=== PATIENT | male | born 1995 | race Caucasian/White ===

== ENCOUNTER 2018-09-21 01:39 | Observation (INO) | payer SELFPAY ==
[2018-09-21] MEDS ORDERED: NORMAL SALINE 1000 ML 1,000 ML IV ONE (02:01)
--- NOTE | 2018-09-21 02:26 | RADIOLOGY REPORT (SQ) ---
EXAM DESCRIPTION: XR CHEST 2 VIEWS COMPLETED DATE/TME: 09/21/2018 01:58 CLINICAL HISTORY: 22 years, Male, chest and back pain, esophageal obstruction. Comparison: None FINDINGS: No focal lung consolidation. No pleural effusion. No pneumothorax. Cardiac and mediastinal silhouette is unremarkable. No acute osseous abnormality. Soft tissues are unremarkable. IMPRESSION: No acute findings. No focal lung consolidation.
--- NOTE | 2018-09-21 02:41 | ER Document Report ---
ED General - General Chief Complaint: Other Stated Complaint: POSSIBLE ESOPHAGEAL OBSTRUCTION,CHEST PAIN Time Seen by Provider: 09/21/18 01:56 Notes: Patient is a 22-year-old male who presents with complaint of possible esophageal impaction. Patient says around 6 PM he felt a piece of chicken get stuck in esophagus. He is unable to tolerate liquids since then. Tonight he coughed and started having pain into his chest and back and still was unable to hold down any liquids or even swallow his own secretions and therefore he came to the ER. Denies any fevers. Denies this ever happening in the past. No history of acid reflux. No recent fevers or infections. No other complaints at this time. No difficulty breathing. - Related Data Allergies/Adverse Reactions: No Known Allergies Allergy (Unverified 09/21/18 01:48) Past Medical History - Social History Smoking Status: Never Smoker Frequency of alcohol use: None Drug Abuse: None Family History: Reviewed & Not Pertinent Patient has suicidal ideation: No Patient has homicidal ideation: No Renal/ Medical History: Denies: Hx Peritoneal Dialysis Past Surgical History: Reports: Hx Cholecystectomy Review of Systems - Review of Systems Notes: My Normal Review Basic REVIEW OF SYSTEMS: CONSTITUTIONAL : Denies fever, chills, or sweats. Denies recent illness. EENT: Denies eye, ear, throat, or mouth pain or symptoms. Denies nasal or sinus congestion. CARDIOVASCULAR: Some chest pain. RESPIRATORY: Denies cough, cold, or chest congestion. Denies shortness of breath, difficulty breathing, or wheezing. GASTROINTESTINAL: Denies abdominal pain. Blood to hold down liquids or secretions. ALL OTHER SYSTEMS REVIEWED AND NEGATIVE. Physical Exam - Vital signs Vitals: Temp Pulse Resp BP Pulse Ox 98.4 F 61 16 117/72 96 09/21/18 01:43 09/21/18 01:43 09/21/18 01:43 09/21/18 01:43 09/21/18 01:43 - Notes Notes: General Appearance: Well nourished, alert, cooperative, no acute distress, no obvious discomfort. Patient doing emesis bag and spitting saliva into the bag. Vitals: reviewed, See vital signs table. Head: no swelling or tenderness to the head Eyes: PERRL, EOMI, Conjuctiva clear Mouth: No decreasd moisture Throat: No tonsillar inflammation, No airway obstruction, No lymphadenopathy Neck: Supple, no neck tenderness, No crepitance Chest wall: No crepitance to palpation of her chest wall. Lungs: No wheezing, No rales, No rhonci, No accessory muscle use, good air exchange bilaterally. Heart: Normal rate, Regular rythm, No murmur, no rub Abdomen: soft, No rigidity, No abdominal tenderness, No guarding, no rebound, no abdominal masses, no organomegaly Neuro: speech clear, oriented x 3, normal affect, responds appropriately to questions. Course - Re-evaluation Re-evalutation: 09/21/18 02:40 Patient has signs and symptoms consistent with esophageal impaction. I did obtain chest x-ray she was having some chest pain. Did this to make sure there is no evidence of pneumomediastinum or esophageal perforation. This is negative. Patient's vital signs are stable. I did speak with Dr. Akers, covering surgeon, who said he will come down and evaluate the patient for potential endoscopy. 09/21/18 02:47 Dr. Bravo has come down. He requests that I give the patient glucagon first to see if this helps. He says to give him glucagon and to have him drink cold water. If this is ineffective then he will consider endoscopy. 09/22/18 03:29 Dr. Bravo did take the patient to endoscopy to remove the food impaction bolus. Patient was then discharged. Dictation of this chart was performed using voice recognition software; therefore, there may be some unintended grammatical errors. - Vital Signs Vital signs: Temp Pulse Resp BP Pulse Ox 98.1 F 87 16 122/65 98 09/21/18 11:41 09/21/18 11:41 09/21/18 11:41 09/21/18 07:29 09/21/18 11:41 Discharge - Discharge Clinical Impression: Food impaction of esophagus Qualifiers: Encounter type: initial encounter Qualified Code(s): T18.128A - Food in esophagus causing other injury, initial encounter Condition: Stable Disposition: OTHER Unit Admitted: OR
[2018-09-21] MEDS ORDERED: GLUCAGON,HUMAN RECOMB 1 MG INJ IV ONE (02:44)
--- NOTE | 2018-09-21 03:51 | PDOC H&P ---
History of Present Illness Patient complains of: dysphagia History of Present Illness: JORGE COOK is a 22 year old male, healthy who chewed and swallowed a small piece of chicken from the pizza topping at a pizza parlor when he chocked on it. This happened at abot 6:00 pm last evening and since then he has been unable to tolerate his own secretions. Past Surgical History Past Surgical History: Reports: Cholecystectomy Social History Smoking Status: Never Smoker Family History Family History: Reviewed & Not Pertinent Parental Family History Reviewed: No Children Family History Reviewed: No Sibling(s) Family History Reviewed.: No Medication/Allergy Allergies/Adverse Reactions: No Known Allergies Allergy (Unverified 09/21/18 01:48) Physical Exam Vital Signs: Temp Pulse Resp BP Pulse Ox 98.4 F 70 11 L 121/83 100 09/21/18 01:43 09/21/18 01:45 09/21/18 03:01 09/21/18 03:00 09/21/18 03:01 Intake & Output 09/19/18 09/20/18 09/21/18 06:59 06:59 06:59 Intake Total 1000 Balance 1000 Weight 51.6 kg General appearance: PRESENT: mild distress, other - spitting up his own saliva Eye exam: PRESENT: EOMI Mouth exam: PRESENT: moist, neck supple Teeth exam: PRESENT: poor dentation Neck exam: PRESENT: full ROM, other - no crepitus Respiratory exam: PRESENT: clear to auscultation brett Cardiovascular exam: PRESENT: RRR GI/Abdominal exam: PRESENT: soft Results Impressions: Chest X-Ray 09/21/18 01:58 IMPRESSION: No acute findings. No focal lung consolidation. Assessment & Plan - Diagnosis (1) Dysphagia Is this a current diagnosis for this admission?: Yes (2) Food impaction of esophagus Is this a current diagnosis for this admission?: Yes - Plan Summary Plan Summary: A/ Impacted food bolus in esophagus since last night 6:00 pm Patient unable to handle his own secretions Chest X-ray negative P/ Emergent EGD to disimpact the esophagus from the food bolus. procedure, risks, benefits, complications explained to the patient, his questions were answered and he decided to proceed
[2018-09-21] MEDS ORDERED: FENTANYL CITRATE INJ/PF 100 MCG/2 ML AMPUL ONE (04:02)
[2018-09-21] MEDS ORDERED: MIDAZOLAM 2 MG/2 ML INJ ONE (04:02)
[2018-09-21] MEDS ORDERED: PROPOFOL INJ 200 MG/20 ML VIAL IV ONE (04:03)
[2018-09-21] MEDS ORDERED: EPHEDRINE SULFATE INJ 50 MG/1 ML AMPULE ONE (04:03)
[2018-09-21] MEDS ORDERED: DEXMEDETOMIDINE INJ 80 MCG/20 ML VIAL IV ONE (04:03)
[2018-09-21] MEDS ORDERED: PROMETHAZINE HCL INJ 25 MG/1 ML VIAL IV PRN (04:51)
[2018-09-21] MEDS ORDERED: MEPERIDINE HCL/PF INJ 25 MG/1 ML DISP.SYRIN IV PRN (04:51)
[2018-09-21] MEDS ORDERED: ONDANSETRON HCL INJ/PF 4 MG/2 ML SDV IV PRN ×2 (04:51→05:20)
[2018-09-21] MEDS ORDERED: DIPHENHYDRAMINE HCL 50 MG/ML VIAL IV PRN (04:51)
--- NOTE | 2018-09-21 05:17 | Operative Report ---
Nonrecallable Operative Report DATE OF SURGERY: 09/21/18 PREOPERATIVE DIAGNOSIS: impacted esophageal food bolus POSTOPERATIVE DIAGNOSIS: same at 30 cm from incisors OPERATION: EGD with esophageal food disimpaction SURGEON: TIAGO CAST ANESTHESIA: GA TISSUE REMOVED OR ALTERED: food bolus (chicken) located in the esophagus at 30 cm from incisors COMPLICATIONS: n/a ESTIMATED BLOOD LOSS: n/a INTRAOPERATIVE FINDINGS: large piece of unmasticated chicken uimpacted in the esophguse at 30 cm from the incisors PROCEDURE: see dictation
[2018-09-21] MEDS ORDERED: NORMAL SALINE 1000 ML 1,000 ML IV PRN (05:20)
--- NOTE | 2018-09-21 05:34 | RADIOLOGY REPORT (SQ) ---
EXAM DESCRIPTION: XR CHEST 1 VIEW COMPLETED DATE/TME: 09/21/2018 00:00 CLINICAL HISTORY: 22 years, Male, Post-procedure r/t food bolus COMPARISON: Prior chest x-ray from today's date NUMBER OF VIEWS: 1 TECHNIQUE: Portable chest LIMITATIONS: None. FINDINGS: Heart size is normal. The lungs are clear. No pneumothorax IMPRESSION: Negative chest copyright 2010 [employer]- All Rights Reserved
[2018-09-21 08:01] VITALS: BP 122/65
[2018-09-21] MEDS ORDERED: FAMOTIDINE INJ/PF 20 MG/2 ML SDV IV SCH (10:00)
--- NOTE | 2018-09-21 11:41 | PDOC DISCHARGE SUMMARY ---
General - Admit/Disc Date/PCP Admission Date/Primary Care Provider: 09/21/18 05:30 Discharge Date: 09/21/18 - Additional Information Resuscitation Status: Full Code Discharge Diet: As Tolerated Discharge Activity: Activity As Tolerated History of Present Illness History of Present Illness: JORGE COOK is a 22 year old male admitted for ingested foreign body with obstruction. The patient underwent EGD with extraction of the foreign body. He was sent to the floor in stable condition. Hospital Course Hospital Course: Patient was taken to the floor in stable condition. He was ambulating, tolerating a diet, afebrile, and by 09/21/2018 it was felt that he had reached maximal hospital benefit and was fit for discharge. Physical Exam Vital Signs: Temp Pulse Resp BP Pulse Ox 98.1 F 87 16 122/65 98 09/21/18 10:48 09/21/18 10:48 09/21/18 10:48 09/21/18 07:29 09/21/18 10:48 Intake & Output 09/20/18 09/21/18 09/22/18 06:59 06:59 06:59 Intake Total 1725 Output Total 2 Balance 1723 Weight 51.6 kg Results Impressions: Chest X-Ray 09/21/18 01:58 IMPRESSION: No acute findings. No focal lung consolidation. Qualifiers - * PATIENT BEING DISCHARGED WITH ANY OF THE FOLLOWING DIAGNOSIS: No Acute Heart Failure Is this a Heart Failure Patient?: No Plan Discharge Plan: Discharge home. Diet as tolerated. Activity as tolerated. Follow-up with me as needed. Please renotify or return to the emergency department if the patient experiences fevers, chills, chest pain, shortness of breath, nausea, vomiting, hematemesis, or any other strange symptoms. Time Spent: Less than 30 Minutes
[2018-09-21] MEDS ORDERED: LIDOCAINE 2% INJ-PF (20 MG/ML) 2 ML AMPUL ONE (14:25)
[2018-09-21] MEDS ORDERED: ONDANSETRON HCL INJ/PF 4 MG/2 ML SDV ONE (14:25)
[2018-09-21] MEDS ORDERED: METOCLOPRAMIDE HCL INJ/PF 10 MG/2 ML SDV ONE (14:25)
[2018-09-21] MEDS ORDERED: SUCCINYLCHOLINE CHLORIDE INJ 200 MG/10 ML VIAL ONE (14:25)
[2018-09-21] MEDS ORDERED: DEXAMETHASONE SOD PHOSPHATE INJ 4 MG/1 ML VIAL ONE (14:25)
--- NOTE | 2018-09-22 07:55 | OPERATIVE REPORT E ---
Operative Report NAME: JORGE COOK : 1995 AGE: 22Y DATE OF SURGERY: 09/21/2018 ROOM: 205 PREOPERATIVE DIAGNOSIS: IMPACTED FOOD BOLUS IN ESOPHAGUS. POSTOPERATIVE DIAGNOSIS: IMPACTED FOOD BOLUS IN ESOPHAGUS AT 30 CM FROM THE INCISORS. OPERATION: 1. Upper gastroduodenoscopy. 2. Esophageal disimpaction of food bolus. SURGEON: TIAGO CAST M.D. HAT BLOCK BENCH HAND: None. BLEEDING COMPLICATION: None. ANESTHESIA: General. FLUIDS: 800 mL of crystalloid. INDICATION AND FINDINGS: A healthy 22-year-old male who inhaled a large piece of chicken while at dinner yesterday at about 6 p.m., and the patient presented to the emergency room at about 2:00 in the morning with difficulty in handling his own saliva. The patient was given glucagon IV and Ativan without success. Just prior to the patient receiving IV glucagon and Ativan, the patient was unable to swallow his own secretions. Therefore, a decision was made to take the patient to surgery to undergo endoscopic removal of the esophageal-impacted food bolus. The procedure, risks, benefits, and complications explained to the patient. He understands all the above. His questions were answered. He decided to proceed. DETAILS OF PROCEDURE: The procedure was done in the operating room. The patient was placed in the supine position. General anesthesia induced by endotracheal intubation. The patient was then rotated in the right lateral decubitus. The patient's mouth was then opened and an endoscope was inserted through the mouth into the esophagus. A large piece of food (chicken) was found impacted at about 30 cm from the incisors. At this point, through the endoscope a large overpass tube was inserted into the mouth and pharynx. An initial an attempt was made to push the food bolus down was unsuccessful. At this point, using the 4-finger prong grasper, the food bolus was initially broke up in pieces and eventually the entire food bolus was grasped and removed through the patient's mouth and extracted in toto. The endoscope was then reinserted through the patient's mouth into the esophagus and the stomach. The stomach was emptied from a large amount of fluid and bilious content. A small amount of food residue was noted in the stomach. The instrument was then retroflexed. The GE junction appeared to be normal. The instrument was then slowly removed and the distal esophagus appeared to be normal. A small area of erythema was noted in the midesophagus, about 2 cm long, where the food bolus was initially impacted. However, no true injury of the mucosa of the esophagus was noted. The instrument was slowly withdrawn. All the secretions were aspirated. The endoscope and the overpass tube were removed. The patient tolerated the procedure well, extubated, and transferred to the recovery room in satisfactory condition. A chest x-ray was obtained to rule out the presence of complications. DICTATING PHYSICIAN: TIAGO CAST M.D. [id number] PHY#: [id number] ID: [id number] JOB#: [id number] ACCT: [id number] cc:TIAGO CAST M.D. > MTDD
== END 2018-09-21 11:50 | disposition home or self-care (01) ==
LOC: ER 01:39 → EH 05:30 → 2N 05:53
PROVIDERS: ATTEND Surgery
PROC: 0DC28ZZ Extirpation of Matter from Middle Esophagus, Via Natural or Artificial Opening Endoscopic (ICD-10-PCS; principal; 2018-09-21 04:00)
DX: T18.128A Food in esophagus causing other injury, initial encounter (principal); X58.XXXA Exposure to other specified factors, initial encounter; R13.10 Dysphagia, unspecified; Z90.49 Acquired absence of other specified parts of digestive tract
CPT/HCPCS: 99283; 96361; 96374; 43247; 71046; 71045; G0378 ×2; J2250; J1100; J1610; J2765; J0330; J2405; J7030; J2704; S0028; J3490; 731; J3010

== ENCOUNTER 2018-12-11 07:43 | Emergency (ER) | payer SELFPAY ==
--- NOTE | 2018-12-11 08:11 | ER Document Report ---
ED General - General Chief Complaint: Vomiting Stated Complaint: VOMITING Time Seen by Provider: 12/11/18 08:10 Primary Care Provider: ERNESTO SANCHEZ MD [ACTIVE STAFF] - Follow up in 3-5 days MANUEL ALLEN MD [ACTIVE STAFF] - Follow up in 3-5 days Mode of Arrival: Medic Information source: Patient TRAVEL OUTSIDE OF THE [place] IN LAST 30 DAYS: No - HPI Notes: 23-year-old male presents the ED for evaluation of vomiting for the last day and was concerned due to having red blood in his vomit. Patient states that he has been vomiting after eating, has vomited after each meal yesterday as well as this morning. Patient did have his gallbladder removed years ago. Denies coffee-ground emesis. Denies having a clotting disorder being on blood thinners. Last bowel movement was last night. Patient states that he does not have any nausea, about 45 minutes after eating he does vomit. Denies fevers, chills, chest pain,palpitations, shortness of breath, dyspnea, nausea, diarrhea, abdominal pain, hematuria,blurred vision, double vision, loss of vision, speech changes, LH, dizziness, syncope, headaches, wheezing, ST, URI, neck pain, weakness, bowel or bladder dysfunction, saddle anesthesia, numbness or tingling in bilateral upper or lower extremities equally, muscle paralysis, weakness in bilateral upper or lower extremities equally or rash. - Related Data Allergies/Adverse Reactions: No Known Allergies Allergy (Verified 12/11/18 07:43) Past Medical History - General Information source: Patient - Social History Smoking Status: Never Smoker Family History: Reviewed & Not Pertinent Renal/ Medical History: Denies: Hx Peritoneal Dialysis Past Surgical History: Reports: Hx Cholecystectomy Review of Systems - Review of Systems Constitutional: No symptoms reported EENT: No symptoms reported Cardiovascular: No symptoms reported Respiratory: No symptoms reported Gastrointestinal: See HPI Genitourinary: No symptoms reported Male Genitourinary: No symptoms reported Musculoskeletal: No symptoms reported Skin: No symptoms reported Hematologic/Lymphatic: No symptoms reported Neurological/Psychological: No symptoms reported Physical Exam - Vital signs Vitals: Temp Pulse Resp BP Pulse Ox 98.3 F 76 16 106/65 98 12/11/18 07:47 12/11/18 07:47 12/11/18 07:47 12/11/18 07:47 12/11/18 07:47 - Notes Notes: PHYSICAL EXAMINATION: GENERAL: Well-appearing, well-nourished and in no acute distress. HEAD: Atraumatic, normocephalic. EYES: Pupils equal round and reactive to light, extraocular movements intact, sclera anicteric, conjunctiva are normal. ENT: Nares patent, oropharynx clear without exudates. Moist mucous membranes. NECK: Normal range of motion, supple without lymphadenopathy LUNGS: Breath sounds clear to auscultation bilaterally and equal. No wheezes rales or rhonchi. HEART: Regular rate and rhythm without murmurs ABDOMEN: Soft, nontender, nondistended abdomen. No guarding, no rebound. No masses appreciated. No CVA tenderness appreciated bilaterally. Musculoskeletal: Normal range of motion, no pitting or edema. No cyanosis. NEUROLOGICAL: Cranial nerves grossly intact. Normal speech, normal gait. Norm al sensory, motor exams PSYCH: Normal mood, normal affect. SKIN: Warm, Dry, normal turgor, no rashes or lesions noted. Course - Re-evaluation Re-evalutation: 12/11/18 09:20 23-year-old male, afebrile vital stable no distress. Nurse's notes reviewed. BC negative for leukocytosis or anemia, CMP negative for hepatic or renal dys function, no electrolyte disturbances, ultrasound of abdomen limited shows status post cholecystectomy however cannot identify cause of vomiting recommended CT abdomen pelvis with contrast, chest x-ray was normal. CT abdomen pelvis with contrast negative for any acute findings per radiology for vomiting. CT states the appendix is not clearly visualized however there is no secondary evidence of appendicitis in the right lower quadrant as well as patient was not tender in his right lower quadrant only in the epigastric area on examination urinalysis was normal. After performing a Medical Screening Examination, I estimate there is LOW risk for ACUTE APPENDICITIS, BOWEL OBSTRUCTION, ACUTE CHO LECYSTITIS, PERFORATED DIVERTICULITIS, INCARCERATED HERNIA, PANCREATITIS, TESTICULAR TORSION or PERFORATED ULCER, thus I consider the discharge disposition reasonable. Also, there is no evidence or peritonitis, sepsis, or toxicity. I have reevaluated this patient multiple times and no significant l shasta threatening changes are noted. The patient and I have discussed the diagnosis and risks, and we agree with discharging home with close follow-up with the understanding that symptoms and presentations can change. We also discussed returning to the Emergency Department immediately if new or worsening symptoms occur. We have discussed the symptoms which are most concerning (e.g., bloody stool, fever, changing or worsening pain, intractable vomiting - standard verbal up date) that necessitate immediate return. - Vital Signs Vital signs: Temp Pulse Resp BP Pulse Ox 98.0 F 54 L 16 113/74 100 12/11/18 12:51 12/11/18 12:51 12/11/18 12:51 12/11/18 12:51 12/11/18 12:51 - Laboratory Result Diagrams: 12/11/18 08:10 12/11/18 08:10 Laboratory results interpreted by me: 12/11/18 12/11/18 08:10 09:00 Eosinophils % 8.6 H Urine Urobilinogen 2.0 H Urine Ascorbic Acid 40 H Discharge - Discharge Clinical Impression: Vomiting Condition: Stable Disposition: HOME, SELF-CARE Instructions: Antinausea Medication ([facility]), Intravenous (IV) Fluids ([facility]), Nausea or Vomiting, Nonspecific ([facility]), Vomiting ([facility]) Additional Instructions: All of your labs today were normal as well as your ultrasound and CT abdomen pelvis. Please follow-up with feller seam operator, referral has been given for 1 as well as a primary care provider take Zofran as needed for any nausea or vomiting. If you experience any fevers, abdominal pain, confusion, persistent vomiting, etc. return to the emergency room immediately return immediately for any new or worsening symptoms. Follow up with primary care provider within 24 hours, call tomorrow to make followup appointment. Prescriptions: Ondansetron [Zofran Odt 4 mg Tablet] 1 - 2 tab PO Q4H PRN #15 tab.rapdis PRN Reason: For Nausea/Vomiting Forms: Return to Work Referrals: ERNESTO SANCHEZ MD [ACTIVE STAFF] - Follow up in 3-5 days MANUEL ALLEN MD [ACTIVE STAFF] - Follow up in 3-5 days
[2018-12-11] MEDS ORDERED: ONDANSETRON HCL INJ/PF 4 MG/2 ML SDV IV ONE (08:53)
[2018-12-11] MEDS ORDERED: NORMAL SALINE 1000 ML 1,000 ML IV PRN (08:53)
[2018-12-11 09:01] LABS: ABSOLUTE BASOPHILS # (AUTO) 0.1 10^3/uL (0.0-0.2); ABSOLUTE EOSINOPHILS # (AUTO) 0.5 10^3/uL (0.0-0.6); ABSOLUTE LYMPHOCYTES (AUTO) 1.4 10^3/uL (0.5-4.7); ABSOLUTE MONOCYTES (AUTO) 0.4 10^3/uL (0.1-1.4); ABSOLUTE NEUT (AUTO) 3.8 10^3/uL (1.7-8.2); BASOPHILS % (AUTO) 0.9 % (0-2); EOSINOPHILS % (AUTO) 8.6 % (0-6); HEMATOCRIT 41.7 % (37.9-51.0); HEMOGLOBIN 14.4 g/dL (13.5-17.0); LYMPHOCYTES % (AUTO) 23.3 % (13-45); MEAN CORPUSCULAR HEMOGLOBIN 30.1 pg (27.0-33.4); MEAN CORPUSCULAR HGB CONC 34.4 g/dL (32.0-36.0); MEAN CORPUSCULAR VOLUME 87 fl (80-97); MONOCYTES % (AUTO) 6.5 % (3-13); PLATELET COUNT 160 10^3/uL (150-450); RED BLOOD COUNT 4.77 10^6/uL (4.35-5.55); RED CELL DISTRIBUTION WIDTH 13.8 % (11.5-14.0); SEGMENTED NEUTROPHILS % (AUTO) 60.7 % (42-78); TOTAL CELLS COUNTED % (AUTO) 100 %; WHITE BLOOD COUNT 6.2 10^3/uL (4.0-10.5)
[2018-12-11 09:10] LABS: ALBUMIN 4.2 g/dL (3.5-5.0); ALKALINE PHOSPHATASE 47 U/L (38-126); ANION GAP 9 (5-19); ASPARTATE AMINO TRANSFERASE 42 U/L (17-59); BILIRUBIN,DIRECT 0.3 mg/dL (0.0-0.4); BILIRUBIN,TOTAL 0.8 mg/dL (0.2-1.3); BLOOD UREA NITROGEN 14 mg/dL (7-20); CALCIUM 9.1 mg/dL (8.4-10.2); CARBON DIOXIDE 28 mmol/L (22-30); CHLORIDE 105 mmol/L (98-107); GLUCOSE 91 mg/dL (75-110); TOTAL PROTEIN 6.4 g/dL (6.3-8.2)
[2018-12-11 09:11] LABS: APPEARANCE,URINE CLEAR; BILIRUBIN,URINE NEGATIVE (NEGATIVE); COLOR,URINE YELLOW; GLUCOSE, URINE NEGATIVE (NEGATIVE); KETONES,URINE NEGATIVE (NEGATIVE); LEUKOCYTE ESTERASE,URINE NEGATIVE (NEGATIVE); NITRITE,URINE NEGATIVE (NEGATIVE); PROTEIN,URINE NEGATIVE (NEGATIVE); URINE SPECIFIC GRAVITY 1.026
[2018-12-11 09:12] LABS: ADD MANUAL MICROSCOPIC YES
[2018-12-11 09:17] LABS: INTERNATIONAL RATION (INR) 1.15; PROTHROMBIN TIME 14.8 SEC (11.4-15.4)
[2018-12-11 09:18] LABS: PARTIAL THROMBOPLASTIN TIME 33.9 SEC (23.5-35.8)
[2018-12-11 09:21] LABS: CALCIUM OXALATE CRYSTALS,UR FEW /HPF; WBC,URINE RARE /HPF
--- NOTE | 2018-12-11 09:41 | RADIOLOGY REPORT (SQ) ---
EXAM DESCRIPTION: CHEST 2 VIEWS COMPLETED DATE/TIME: 12/11/2018 9:32 am REASON FOR STUDY: vomiting, epigastric pain COMPARISON: AP chest 09/21/2018 Two-view chest 09/21/2018 EXAM PARAMETERS: NUMBER OF VIEWS: two views TECHNIQUE: Digital Frontal and Lateral radiographic views of the chest acquired. RADIATION DOSE: NA LIMITATIONS: none FINDINGS: LUNGS AND PLEURA: No opacities, masses or pneumothorax. No pleural effusion. MEDIASTINUM AND HILAR STRUCTURES: No masses or contour abnormalities. HEART AND VASCULAR STRUCTURES: Heart normal size. No evidence for failure. BONES: No acute findings. HARDWARE: Clips right upper quadrant post cholecystectomy OTHER: No other significant finding. IMPRESSION: NO ACUTE RADIOGRAPHIC FINDING IN THE CHEST. TECHNICAL DOCUMENTATION: JOB ID: [id number] [employer]- All Rights Reserved Reading location - IP/workstation name: [email or web address]
--- NOTE | 2018-12-11 10:01 | RADIOLOGY REPORT (SQ) ---
EXAM DESCRIPTION: U/S ABDOMEN LIMITED W/O DOP COMPLETED DATE/TIME: 12/11/2018 9:52 am REASON FOR STUDY: vomiting after eating COMPARISON: None. TECHNIQUE: Dynamic and static grayscale images acquired of the abdomen and recorded on PACS. Additio nal selected color Doppler and spectral images recorded. LIMITATIONS: None. FINDINGS: PANCREAS: No masses. Visualized pancreatic duct normal caliber. LIVER: No masses. Echotexture normal. LIVER VASCULATURE: Normal directional flow of the main portal vein and hepatic veins. GALLBLADDER: Surgically absent. ULTRASOUND-DETECTED ACHARYA'S SIGN: Negative. INTRAHEPATIC DUCTS AND COMMON DUCT: CBD and intrahepatic ducts normal caliber. No filling defects. INFERIOR VENA CAVA: Normal flow. AORTA: No aneurysm. RIGHT KIDNEY: Normal size. Normal echogenicity. No solid or suspicious masses. No hydronephrosis. No calcifications. PERITONEAL AND RIGHT PLEURAL SPACE: No ascites or effusions. OTHER: No other significant findings. IMPRESSION: Status post cholecystectomy. No ultrasound findings to explain vomiting. Consider CT o r MRI to further evaluate unexplained abdominal symptoms. TECHNICAL DOCUMENTATION: JOB ID: [id number] [employer]- All Rights Reserved Reading location - IP/workstation name: [email or web address]
--- NOTE | 2018-12-11 12:29 | RADIOLOGY REPORT (SQ) ---
EXAM DESCRIPTION: CT ABD/PELVIS WITH IV ONLY COMPLETED DATE/TIME: 12/11/2018 12:08 pm REASON FOR STUDY: vomiting, epigastric abd pain COMPARISON: None. TECHNIQUE: CT scan of the abdomen and pelvis performed using helical scanning technique with dynamic intravenous contrast injection. No oral contrast. Images reviewed with lung, soft tissue, and bone windows. Reconstructed coronal and sagittal MPR images reviewed. Delayed images for evaluation of the urinary system also acquired. All images stored on PACS. All CT scanners at this facility use dose modulation, iterative reconstruction, and/or weight based d osing when appropriate to reduce radiation dose to as low as reasonably achievable (ALARA). [facility]: Dose Right [facility]: CareDose [facility]: Dose Right [facility]: Teradose 4D [facility]: [employer] CONTRAST TYPE AND DOSE: contrast/concentration: Isovue 350.00 mg/ml; Total Contrast Delivered: 62.0 ml; Total Saline Delivered: 65.0 ml RENAL FUNCTION: None required. The patient is less than 50 years old. RADIATION DOSE: CT Rad equipment meets quality standard of care and radiation dose reduction techniq ues were employed. CTDIvol: 4.8 - 4.8 mGy. DLP: 495 mGy-cm.. LIMITATIONS: None. FINDINGS: LOWER CHEST: No significant findings. No nodules or infiltrates. LIVER: Normal size. No masses. No dilated ducts. SPLEEN: Normal size. No focal lesions. PANCREAS: No masses. No significant calcifications. No adjacent inflammation or peripancreatic fluid collections. Pancreatic duct not dilated. GALLBLADDER: Surgically absent. ADRENAL GLANDS: No significant masses or asymmetry. RIGHT KIDNEY AND URETER: No solid masses. No significant calcifications. No hydronephrosis or hyd roureter. LEFT KIDNEY AND URETER: No solid masses. No significant calcifications. No hydronephrosis or hydr oureter. AORTA AND VESSELS: No aneurysm. No dissection. Renal arteries, SMA, celiac without stenosis. RETROPERITONEUM: No retroperitoneal adenopathy, hemorrhage or masses. BOWEL AND PERITONEAL CAVITY: No masses or inflammatory changes. No free fluid or peritoneal masses. APPENDIX: Not clearly visualized. PELVIS: No mass. No free fluid. Normal bladder. ABDOMINAL WALL: No masses. No hernias. BONES: No significant or acute findings. OTHER: No other significant finding. IMPRESSION: Status post cholecystectomy. No acute CT findings of the abdomen or pelvis to explain v omiting. The appendix is not clearly visualized; there is no secondary evidence of appendicitis in t he right lower quadrant. TECHNICAL DOCUMENTATION: JOB ID: [id number] Quality ID # [id number]: Final reports with documentation of one or more dose reduction techniques (e.g., Au tomated exposure control, adjustment of the mA and/or kV according to patient size, use of iterative reconstruction technique) 2010 [employer]- All Rights Reserved Reading location - IP/workstation name: [email or web address]
[2018-12-11 12:56] VITALS: BP 113/74
== END 2018-12-11 12:57 | disposition home or self-care (01) ==
LOC: ER 07:43
DX: R11.10 Vomiting, unspecified (principal)
CPT/HCPCS: 99284; 96361; 96374; 36415; 83690; 85025; 85610; 85730; 80053; 81001; 71046; 76705; 74177; J2405; J7030

== ENCOUNTER 2019-04-08 16:16 | Emergency (ER) | payer OTHER, BC ==
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
[2019-04-08 18:30] VITALS: BP 116/94
== END 2019-04-08 18:25 | disposition home or self-care (01) ==
LOC: ER 16:16
DX: R07.89 Other chest pain (principal); V47.9XXA Unspecified car occupant injured in collision with fixed or stationary object in traffic accident, initial encounter; W22.10XA Striking against or struck by unspecified automobile airbag, initial encounter
CPT/HCPCS: 71045; 71120; 99284

== ENCOUNTER 2020-05-31 07:06 | Emergency (ER) | payer BC, OTHER ==
--- NOTE | 2020-05-31 08:33 | ER Document Report ---
ED Headache - General Chief Complaint: Headache Stated Complaint: headache Time Seen by Provider: 05/31/20 08:09 Primary Care Provider: VIRGINIE,NO [Primary Care Provider] - Follow up as needed Notes: CHIEF COMPLAINT: Left headache HPI: 24-year-old male presenting with years of intermittent left parietal and facial headaches. States they would occur infrequently perhaps once a month, saw someone in [place] and was told it was migraines. Is not on medication for migraine. States the frequency has been increasing over the last few months to now having weekly headaches. Had another headache today with some nausea no visual changes. Headache will last until the nausea resolves. No weakness numbness or tingling in the extremities. No facial droop. No slurred speech. ROS: See HPI - all other systems were reviewed and are otherwise negative Constitutional: no fever Eyes: no drainage, no blurred vision ENT: no runny nose, no sore throat Cardiovascular: no chest pain Resp: no SOB, no cough GI: no vomiting, no diarrhea, no abdominal pain : no dysuria Integumentary: no rash Allergy: no hives Musculoskeletal: no extremity pain or swelling Neurological: no numbness/tingling, no weakness, positive headache MEDICATIONS: I agree with the patient medications as charted by the RN. ALLERGIES: I agree with the allergies as charted by the RN. PAST MEDICAL HISTORY/PAST SURGICAL HISTORY: Reviewed and agree as charted by RN. SOCIAL HISTORY: Reviewed and agree as charted by RN. FAMILY HISTORY: No significant familial comorbid conditions directly related to patient complaint EXAM: Reviewed vital signs as charted by RN. CONSTITUTIONAL: Alert and oriented and responds appropriately to questions. Well-appearing; well-nourished HEAD: Normocephalic; atraumatic EYES: PERRL; Conjunctivae clear, sclerae non-icteric. No photophobia. ENT: normal nose; no rhinorrhea; moist mucous membranes; pharynx without lesions noted, no uvula edema or deviation, no tonsillar hypertrophy, phonation normal NECK: Supple without meningismus; non-tender; no cervical lymphadenopathy, no masses CARD: RRR; no murmurs, no clicks, no rubs, no gallops; symmetric distal pulses RESP: Normal chest excursion without splinting or tachypnea; breath sounds clear and equal bilaterally; no wheezes, no rhonchi, no rales, pulse oximetry 98% on room air not hypoxic ABD/GI: Normal bowel sounds; non-distended; soft, non-tender, no rebound, no guarding; no palpable organomegaly or masses. BACK: The back appears normal and is non-tender to palpation, there is no CVA tenderness EXT: Normal ROM in all joints; non-tender to palpation; no cyanosis, no effusions, no edema SKIN: Normal color for age and race; warm; dry; good turgor; no acute lesions noted NEURO: Moves all extremities equally; Motor and sensory function intact. Face symmetric. Tongue protrudes midline. Extraocular motions intact. Pupils are 2 mm and equally reactive. Normal speech, normal gait. 5 out of 5 strength in both the distal and proximal upper and lower extremities bilaterally. Sensation is grossly intact throughout. Finger to nose testing normal. Pronator drift normal. PSYCH: The patient's mood and manner are appropriate. Grooming and personal hygiene are appropriate. MDM: 24-year-old male with a left-sided headache has not previously had imaging has been ongoing for several years. Will obtain a CT to evaluate and ensure th ere is no mass causing his headaches. If CT negative anticipate discharge with Toradol in the emergency department, prescription for Phenergan for home use and referral to neurology TRAVEL OUTSIDE OF THE [place] IN LAST 30 DAYS: No - Related Data Allergies/Adverse Reactions: No Known Allergies Allergy (Verified 12/11/18 07:43) Past Medical History - Social History Smoking Status: Unknown if Ever Smoked Family History: Reviewed & Not Pertinent Patient has homicidal ideation: No Renal/ Medical History: Denies: Hx Peritoneal Dialysis Past Surgical History: Reports: Hx Cholecystectomy Physical Exam - Vital signs Vitals: Temp Pulse Resp BP Pulse Ox 97.9 F 60 16 116/84 100 05/31/20 07:12 05/31/20 07:12 05/31/20 07:12 05/31/20 07:12 05/31/20 07:12 - HEENT Visual acuity- Right eye: 20/30 Visual acuity- Left eye: 20/30 Visual acuity- Both eyes: 20/40 Corrective lenses worn: Yes - Glasses Course - Re-evaluation Re-evalutation: 05/31/20 09:07 CT of the head does not show acute abnormalities will discharge home to follow- up with neurology - Vital Signs Vital signs: Temp Pulse Resp BP Pulse Ox 97.9 F 60 16 116/84 100 05/31/20 07:12 05/31/20 07:12 05/31/20 07:12 05/31/20 07:12 05/31/20 07:12 - Laboratory Results Critical Laboratory Results Reviewed: No Critical Results - Radiology Results Critical Radiology Results Reviewed: No Critical Results Discharge - Discharge Clinical Impression: Headache Qualifiers: Headache type: unspecified Headache chronicity pattern: episodic headache Intractability: not intractable Qualified Code(s): R51.9 - Headache, unspecified Condition: Stable Disposition: HOME, SELF-CARE Additional Instructions: CT imaging today did not show any acute abnormalities. Take the Phenergan for any nausea or vomiting issues. Do not drive if taking this medication as it can make you drowsy. Follow-up closely with both primary care and neurology for further evaluation and management call for appointment Prescriptions: Promethazine HCl [Phenergan 25 mg Tablet] 1 tab PO Q6H PRN #15 tablet PRN Reason: Referrals: KAMINI HAMMOND MD [COMMUNITY BASED STAFF] - Follow up as needed
--- NOTE | 2020-05-31 09:01 | RADIOLOGY REPORT (SQ) ---
EXAM DESCRIPTION: CT HEAD WITHOUT IMAGES COMPLETED DATE/TIME: 05/31/2020 8:50 am REASON FOR STUDY: left headache COMPARISON: None. TECHNIQUE: Axial images acquired through the brain without intravenous contrast. Images reviewed wi th bone, brain and subdural windows. Additional sagittal and coronal reconstructions were generated. Images stored on PACS. All CT scanners at this facility use dose modulation, iterative reconstruction, and/or weight based d osing when appropriate to reduce radiation dose to as low as reasonably achievable (ALARA). [facility]: Dose Right [facility]: CareDose [facility]: Dose Right [facility]: Teradose 4D [facility]: Smart [employer] RADIATION DOSE: CT Rad equipment meets quality standard of care and radiation dose reduction techniq ues were employed. CTDIvol: 53.2 mGy. DLP: 1177 mGy-cm. mGy. LIMITATIONS: None. FINDINGS: VENTRICLES: Normal size and contour. CEREBRUM: No masses. No hemorrhage. No midline shift. No evidence for acute infarction. Normal gra y/white matter differentiation. No areas of low density in the white matter. CEREBELLUM: No masses. No hemorrhage. No alteration of density. No evidence for acute infarction. EXTRAAXIAL SPACES: No fluid collections. No masses. ORBITS AND GLOBE: No intra- or extraconal masses. Normal contour of globe without masses. CALVARIUM: No fracture. PARANASAL SINUSES: No fluid or mucosal thickening. SOFT TISSUES: No mass or hematoma. OTHER: No other significant finding. IMPRESSION: NORMAL BRAIN CT WITHOUT CONTRAST. EVIDENCE OF ACUTE STROKE: NO. COMMENT: Quality ID # [id number]: Final reports with documentation of one or more dose reduction techniques (e.g., Automated exposure control, adjustment of the mA and/or kV according to patient size, use of iterative reconstruction technique) TECHNICAL DOCUMENTATION: JOB ID: [id number] [employer]- All Rights Reserved Reading location - IP/workstation name: [email or web address]
[2020-05-31] MEDS ORDERED: KETOROLAC TROMETHAMINE 60 MG/2 ML SDV IM ONE (09:07)
[2020-05-31 10:19] VITALS: BP 110/79
== END 2020-05-31 10:20 | disposition home or self-care (01) ==
LOC: ER 07:06
DX: R51.9 Headache, unspecified (principal); R11.0 Nausea
CPT/HCPCS: 99285; 96372; 70450; J1885